=== PATIENT | female | born 1950 | race Caucasian/White ===

== ENCOUNTER 2018-12-04 09:59 | Emergency (ER) | payer OTHER, MEDICAID ==
[~2018-12-04] VITALS: Ht 154.9 cm; Wt 65.6 kg
[~2018-12-04 09:59] MED LIST: AMLO2.5T78 PO; DOCU-159 PO; FENO160T13 PO; NAPR-688 PO; OMEP20CA9 PO
[2018-12-04 10:09] VITALS: Ht 154.9 cm; Wt 65.6 kg
[2018-12-04] MEDS ORDERED: FAMOTIDINE 20 MG TAB PO STA (11:09)
[2018-12-04] MEDS ORDERED: SOD CHLORIDE 0.9% 100 ML ONE (12:24)
[2018-12-04] MEDS ORDERED: IOHEXOL 300MG/ML 150 ML BTL ONE (12:24)
[2018-12-04] MEDS ORDERED: ACET-141 PO (12:28)
--- NOTE | 2018-12-04 12:57 | ERD ---
ER Documentation Chief Complaint Chief Complaint EPIGASTRIC & UPPER BACK PAIN X6MTHS HPI 68-year-old female with a history of hypertension, hyperlipidemia and arthritis presents to the ED complaining of a one-month history of worsening, intermittent, sharp and achy epigastric pain which radiates to the back. No nausea but denies vomiting, diarrhea or constipation. No hematochezia or melena. Symptoms are worsened by eating. She stopped taking her cholesterol medications because they also exacerbated the pain. No relieving factors. Also complaining of a 6-month history of moderate, diffuse upper back pain. Prior workups including advanced imaging revealed disc disease. Denies logic changes, weakness or numbness. No chest pain or palpitations. Denies shortness of breath or cough. No dysuria, polyuria, hematuria or flank pain. No fevers or chills. ROS All systems reviewed and are negative except as per history of present illness. Medications Home Meds Reported Medications Acetaminophen* (Acetaminophen*) 500 MG Extra Strength Tablet, 500 MG PO Q4H PRN for PAIN AND OR ELEVATED TEMP, TAB 12/04/18 Omeprazole* (Prilosec*) 20 Mg Capsule.dr, 20 MG PO DAILY 04/05/13 Discontinued Reported Medications Naproxen* (Naproxen*) 500 Mg Tablet, 500 MG PO DAILY 04/05/13 Fenofibrate, Micronized* (Fenofibrate*) 160 Mg Tablet, 160 MG PO DAILY 04/05/13 Amlodipine Besylate* (Amlodipine Besylate*) 2.5 Mg Tablet, 2.5 MG PO PM, #2 04/05/13 Docusate Sodium* (Docusate Sodium*) 100 Mg Capsule, 100 MG PO BID 04/05/13 Allergies Allergies: Coded Allergies: No Known Allergy (Verified , 12/04/18) PMhx/Soc Anesthesia Reaction: No Hx Neurological Disorder: No Hx Respiratory Disorders: No Hx Cardiac Disorders: Yes (HTN) Hx Psychiatric Problems: No Hx Miscellaneous Medical Probl: No Hx Alcohol Use: No Hx Substance Use: No Hx Tobacco Use: No Smoking Status: Never smoker Physical Exam Vitals Vital Signs Date Temp Pulse Resp B/P (MAP) Pulse Ox O2 O2 Flow FiO2 Time Delivery Rate 12/04/18 97.6 62 16 121/98 100 Nasal 2.0 12:38 (106) Cannula 12/04/18 97.0 68 18 161/80 96 10:09 (107) Physical Exam Const: No acute distress Head: Atraumatic Eyes: Normal Conjunctiva ENT: Normal External Ears, Nose and Mouth. Neck: Full range of motion. No meningismus. Resp: Clear to auscultation bilaterally Cardio: Regular rate and rhythm, no murmurs Abd: Soft, non tender, non distended. Normal bowel sounds Skin: No petechiae or rashes Back: No midline or flank tenderness Ext: No cyanosis, or edema Neur: Awake and alert Psych: Normal Mood and Affect Result Diagram: 12/04/18 1115 12/04/18 1115 Results 24 hrs Laboratory Tests Test 12/04/18 11:15 White Blood Count 5.0 10^3/ul Red Blood Count 4.87 10^6/ul Hemoglobin 14.0 g/dl Hematocrit 43.3 % Mean Corpuscular Volume 88.9 fl Mean Corpuscular Hemoglobin 28.7 pg Mean Corpuscular Hemoglobin Concent 32.3 g/dl Red Cell Distribution Width 12.8 % Platelet Count 195 10^3/UL Mean Platelet Volume 10.7 fl Immature Granulocytes % 0.200 % Neutrophils % 46.3 % Lymphocytes % 42.2 % Monocytes % 9.5 % Eosinophils % 1.4 % Basophils % 0.4 % Nucleated Red Blood Cells % 0.0 /100WBC Immature Granulocytes # 0.010 10^3/ul Neutrophils # 2.3 10^3/ul Lymphocytes # 2.1 10^3/ul Monocytes # 0.5 10^3/ul Eosinophils # 0.1 10^3/ul Basophils # 0.0 10^3/ul Nucleated Red Blood Cells # 0.0 10^3/ul Urine Color YELLOW Urine Clarity CLEAR Urine pH 7.0 Urine Specific [place] 1.016 Urine Ketones NEGATIVE mg/dL Urine Nitrite NEGATIVE mg/dL Urine Bilirubin NEGATIVE mg/dL Urine Urobilinogen NEGATIVE mg/dL Urine Leukocyte Esterase NEGATIVE [place]/ul Urine Hemoglobin NEGATIVE mg/dL Urine Glucose NEGATIVE mg/dL Urine Total Protein NEGATIVE mg/dl Sodium Level 143 mmol/L Potassium Level 3.9 mmol/L Chloride Level 105 mmol/L Carbon Dioxide Level 28 mmol/L Anion Gap 10 Blood Urea Nitrogen 15 mg/dl Creatinine 0.61 mg/dl Est Glomerular Filtrat Rate mL/min > 60 mL/min Glucose Level 91 mg/dl Calcium Level 9.9 mg/dl Total Bilirubin 0.4 mg/dl Direct Bilirubin 0.00 mg/dl Indirect Bilirubin 0.4 mg/dl Aspartate Amino Transf (AST/SGOT) 30 IU/L Alanine Aminotransferase (ALT/SGPT) 24 IU/L Alkaline Phosphatase 102 IU/L Troponin I < 0.012 ng/ml Total Protein 7.6 g/dl Albumin 4.2 g/dl Globulin 3.40 g/dl Albumin/Globulin Ratio 1.23 Lipase 95 U/L Current Medications Medications Dose Sig/Desean Start Time Status Last (Trade) Ordered Route PRN Stop Time Admin Dose Reason Admin Famotidine 20 mg ONCE STAT 12/04/18 DC 12/04/18 (Pepcid) PO 11:09 11:18 12/04/18 11:13 Iohexol 150 ml STK-MED 12/04/18 DC (Omnipaque ONCE .ROUTE 12:24 300mg/ ml) 12/04/18 12:25 Sodium 100 ml @ ud STK-MED 12/04/18 DC Chloride ONCE .ROUTE 12:24 12/04/18 12:25 IV Flush 10 ml STK-MED 12/04/18 DC (NS 10 ml) ONCE .ROUTE 12:24 12/04/18 12:25 Procedures/MDM DOCUMENTS REVIEWED: ED nurse, prior ED EKG: Time: :19. Sinus rhythm. Ventricular rate 61, normal [place] and QRS intervals. No acute ST segment elevation or depression. No axis deviation or ectopy. My Interpretation: Normal EKG IMAGING: PROCEDURE: US Abdomen (right upper quadrant). CLINICAL INDICATION: Abdominal pain. TECHNIQUE: Multiple real-time longitudinal and transverse images of the right upper quadrant of the abdomen were acquired utilizing a curved array transducer. Images were reviewed on a high-resolution PACS workstation. COMPARISON: None FINDINGS: The liver is normal in size and echotexture without focal mass or intrahepatic biliary dilatation. There is normal hepatopedal flow within the main portal vein. The gallbladder is remarkable for multiple mobile, echogenic, shadowing calculi. There is no wall thickening. The common bile duct measures 3.3 mm in maximal dimension. The visualized portions of the pancreas are unremarkable with obscuration of the tail of the pancreas. No free fluid is identified. The right kidney measures 9.3 cm in length. There is normal echogenicity within the right kidney. There is no perinephric fluid collection. No hydronephrosis, mass, or calculus is seen. IMPRESSION: 1. Cholelithiasis without evidence of gallbladder wall thickening or biliary tree dilatation. RPTAT: [facility] Physician Paul Date Time Electronically viewed and signed by Sourav Covington Physician on 12/04/2018 12:44 JH/ PROCEDURE: CT Abdomen and Pelvis with IV contrast. CLINICAL INDICATION: Abdominal pain TECHNIQUE: CT of the abdomen and pelvis with 90 cc Omnipaque-300 IV contrast. Coronal and sagittal reformatted images. DICOM images are available. One or more of the following dose reduction techniques were used: automated exposure control, adjustment of the mA and/or kV according to patient size, use of it erative reconstruction technique. CTDI 9.2 mGy, DLP 502 mGy-cm. COMPARISON: CT 04/05/2013 FINDINGS: Lower thorax: Mild hiatal hernia. Liver: Normal. Biliary: Normal gallbladder. No biliary dilatation. Pancreas: Normal. Spleen: Normal. Adrenal glands: Normal. Genitourinary: Heterogeneously enhancing 2.2 cm mass is seen arising from the upper pole of the left kidney (3-61). No urolithiasis or obstructive uropathy. Moderately distended urinary bladder. Vascular: No abdominal aortic aneurysm or dissection. Scattered atherosclerotic calcifications. Lymph nodes: No lymphadenopathy. Gastrointestinal: No bowel obstruction. Normal appendix. No diverticulosis, diverticulitis or colitis. Peritoneum: No free air, free fluid or abscess. Fat-containing umbilical and bilateral inguinal hernias are noted. Reproductive organs: Unremarkable. Musculoskeletal: Degenerative enthesopathy of the spine. IMPRESSION: 1. Heterogeneously enhancing 2.2 cm mass is seen arising from the upper pole of the left kidney, new when compared to the prior CT, compatible with primary renal malignancy. Urologic consultation is recommended. No evidence of metastatic disease is seen in the abdomen and pelvis. 2. There is nonspecific moderate distension of the urinary bladder, possibly indicating urinary retention / bladder outflow obstruction. 3. Mild hiatal hernia. 4. Fat-containing umbilical and bilateral inguinal hernias are noted, without incarceration. RPTAT: AAQQ .Srinivasa Fuentes MD, MD Date Time Electronically viewed and signed by .Srinivasa Fuentes MD, on 12/04/2018 13:26 .R/ CALLS/CONSULTATIONS: Time: 14:20. Dr Jose F Lawrence. We will arrange for urgent, outpatient urology follow-up. MEDICAL DECISION MAKIN-year-old female with a history of hypertension, hy perlipidemia and arthritis presents to the ED complaining of a one-month history of worsening, intermittent, sharp and achy epigastric pain which radiates to the back. . Stable for discharge with precautionary instructions and outpatient follow-up as counseled. Counseled patient and family regarding diagnostic workup, diagnosis and need for followup. Understands to return to ED if symptoms recur, worsen or any other concerns. Departure Diagnosis: Primary Impression: Abdominal pain, acute, epigastric Additional Impressions: Cholelithiasis Cholelithiasis location: gallbladder Cholecystitis presence: without cholecystitis Biliary obstruction: without biliary obstruction Qualified Codes: K80.20 - Calculus of gallbladder without cholecystitis without obstruction Left renal mass Condition: Stable PREMA VIEYRA MD Dec 04, 2018 12:57
[2018-12-04] MEDS ORDERED: TRAM50TA2 PO (15:20)
[2018-12-04 15:29] VITALS: BP 126/89; PULSE 66; RESP 18
== END 2018-12-04 15:32 | disposition home or self-care (01) ==
LOC: E/R 09:59
DX: K80.20 Calculus of gallbladder without cholecystitis without obstruction (principal); I10 Essential (primary) hypertension; N28.89 Other specified disorders of kidney and ureter
CPT/HCPCS: 36415; 74177; 76705; 80053; 81003; 83690; 84484; 85025; 93005; 99285; Q9967